=== PATIENT | male | born 1940 | race African-American/Black ===

== ENCOUNTER 2019-07-09 21:46 | Emergency (ER) | payer OTHER ==
[2019-07-09 22:03] VITALS: BP 157/67; PULSE 69; TEMP 98.7; BMI 26.6
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
== END 2019-07-09 23:50 | disposition home or self-care (01) ==
LOC: JER 21:46 → JERFT 21:46 → JER 23:50
DX: M79.18 Myalgia, other site (principal); M26.69 Other specified disorders of temporomandibular joint; M54.2 Cervicalgia; R51 Headache; V49.49XA Driver injured in collision with other motor vehicles in traffic accident, initial encounter; Y92.414 Local residential or business street as the place of occurrence of the external cause; Y93.89 Activity, other specified; Y99.8 Other external cause status; I10 Essential (primary) hypertension; E78.5 Hyperlipidemia, unspecified
CPT/HCPCS: 70450-TC; 70486-TC; 72125-TC; 99283-25

== ENCOUNTER 2019-10-04 15:43 | Emergency (ER) | payer OTHER ==
[2019-10-04 16:09] VITALS: BP 170/82; PULSE 82; TEMP 97.6; BMI 26.1
--- NOTE | 2019-10-04 16:09 | PDOC ---
Rapid Medical Evaluation Time Seen by Provider: 10/04/19 16:04 Medical Evaluation: Allergies Allergy/AdvReac Type Severity Reaction Status Date / Time No Known Drug Allergies Allergy Verified 07/09/19 22:01 10/04/19 16:04 CC: High blood pressure Pt is a 79 y/o male who presents to the ED with complaint of very high blood pressure while at the dentist earlier today. Was told to come to the ED since his PMD was closed. Pt states he has been having hazy vision since this morning. Brief exam: Non toxic appearing, calm, S1S2 Orders: labs, ekg To ED for further evaluation Discharge Disposition - Diagnosis High blood pressure - Referrals - Patient Instructions - Post Discharge Activity
[2019-10-04 16:41] LABS: BASO % 0.8 % (0-2.0); EOS % 5.1 % (0-4.5); HEMATOCRIT 43.8 % (35.4-49); HEMOGLOBIN 14.2 GM/dL (11.7-16.9); LYMPH % 17.5 % (8-40); MCH 27.7 pg (25.7-33.7); MCHC 32.4 g/dl (32.0-35.9); MEAN CELL VOLUME 85.3 fl (80-96); MEAN PLT VOLUME 8.4 fl (7.5-11.1); MONO % 10.4 % (3.8-10.2); NEUT % 66.2 % (42.8-82.8); PLATELET COUNT 205 K/MM3 (134-434); RBC 5.13 M/mm3 (4.00-5.60); WHITE BLOOD COUNT 8.8 K/mm3 (4.0-10.0)
[2019-10-04 17:13] LABS: ALBUMIN 3.9 g/dl (3.4-5.0); BILIRUBIN,TOTAL 0.4 mg/dL (0.2-1); BLOOD UREA NITROGEN 15.7 mg/dL (7-18); CALCIUM 9.4 mg/dL (8.5-10.1); CREATININE 0.9 mg/dL (0.55-1.3); MAGNESIUM 2.2 mg/dL (1.8-2.4); POTASSIUM 4.2 mmol/L (3.5-5.1); TOT PROT 7.5 g/dl (6.4-8.2)
--- NOTE | 2019-10-04 19:22 | PDOC ---
History of Present Illness - General Stated Complaint: SENT BY PCP/HYPERTENSION Time Seen by Provider: 10/04/19 16:04 History Source: Patient Exam Limitations: No Limitations - History of Present Illness Initial Comments: 10/04/19 19:23 HISTORY OF PRESENT ILLNESS: 79-year-old male past medical history of hypertension and hyperlipidemia presents emergency department for evaluation of elevated blood pressure. Patient states he was at his dentist office today when his dentist checked his blood pressure noted it was elevated. Patient denies any physical complaints including headache, dizziness, blurry vision, chest pain, shortness of breath, abdominal pain, nausea or vomiting. Patient denies any back pain or urinary difficulties. Patient states he stopped using his metoprolol as he had an unwanted side effect of impotence. Patient has not been in contact with his primary doctor to continue with alternative treatments for his blood pressure. Patient reports he has not taken his metoprolol in the past 2 weeks to avoid the undesired side effects. Patient states he has a full prescription of the medication at home. No recent travel or sick contacts. PAST MEDICAL HISTORY: See HPI SURGICAL HISTORY: Denies ALLERGIES: No known drug allergies REVIEW OF SYSTEMS General/Constitutional: See HPI HEENT: Denies change in vision. Denies ear pain or discharge. Denies sore throat. Cardiovascular: Denies chest pain or shortness of breath. Respiratory: Denies cough, wheezing, or hemoptysis. Gastrointestinal: Denies nausea, vomiting, diarrhea or constipation. Denies rectal bleeding. Genitourinary: Denies dysuria, frequency, or change in urination. Musculoskeletal: Denies joint or muscle swelling or pain. Denies neck or back pain. Skin and breasts: Denies rash or easy bruising. Neurologic: Denies headache, vertigo, loss of consciousness, or loss of sensation. Psychiatric: Denies depression or anxiety. Endocrine: Denies increased thirst. Denies abnormal weight change. Hematologic/Lymphatic: Denies anemia, easy bleeding, or history of blood clots. Allergic/Immunologic: Denies hives or skin allergy. Denies latex allergy. PHYSICAL EXAM General Appearance: Well-appearing, appropriately dressed. No apparent distress , no intoxication. HEENT: EOMI, PERRLA, normal ENT inspection, normal voice, TMs normal, pharynx normal. No conjunctival pallor. No photophobia, scleral icterus. Normal fundus-no cotton-wool spots present. Neck: Supple. Trachea midline. No tenderness, rigidity, carotid bruit, stridor , lymphadenopathy, or thyromegaly. Respiratory/Chest: Lungs CTAB. No shortness of breath, chest tenderness, respiratory distress, accessory muscle use. No crackles, rales, rhonchi, stridor , wheezing, dullness Cardiovascular: RRR. S1, S2. No JVD, murmur, bradycardia, tachycardia. Vascular Pulses: Dorsalis-Pedis (R): 2+, Dorsalis-Pedis (L): 2+ Gastrointestinal/Abdominal: Normal bowel sounds. Abdomen soft, non-distended. No tenderness or rebound tenderness. No organomegaly, pulsatile mass, guarding, hernia, hepatomegaly, splenomegaly. Lymphatic: No adenopathy, tenderness. Musculoskeletal/Extremities: Normal inspection. FROM of all extremities, normal capillary refill. Pelvis Stable. No CVA tenderness. No tenderness to extremities, pedal edema, swelling, erythema or deformity. Integumentary: Appropriate color, dry, warm. No cyanosis, erythema, jaundice or rash Neurologic: turn down worker II-XII intact. Fully oriented, alert. Appropriate mood/affect. Motor strength 5/5. No appreciable EOM palsy, facial droop or sensory deficit. Past History - Past Medical History Allergies/Adverse Reactions: Allergies Allergy/AdvReac Type Severity Reaction Status Date / Time No Known Drug Allergies Allergy Verified 07/09/19 22:01 Home Medications: Ambulatory Orders Atorvastatin Ca [Lipitor] 10 mg PO DAILY 06/22/14 Losartan/Hydrochlorothiazide [Losartan-Hctz 50-12.5 mg Tab] 1 each PO DAILY 07/20 Cyclobenzaprine HCl [Flexeril -] 10 mg PO HS PRN #7 tablet 07/09/19 Ibuprofen 600 mg PO QID PRN #20 tablet 07/09/19 Metoprolol Tartrate 50 mg PO DAILY 07/09/19 Anemia: No Asthma: Yes Cancer: Yes (prostate) Cardiac Disorders: No CVA: No COPD: Yes CHF: No Dementia: No Diabetes: No GI Disorders: Yes Disorders: No HTN: Yes Hypercholesterolemia: Yes Liver Disease: No Seizures: No Thyroid Disease: No - Surgical History Abdominal Surgery: Yes (HERNIA REPAIR) Appendectomy: No Cardiac Surgery: No Cholecystectomy: No Lung Surgery: No Neurologic Surgery: No Orthopedic Surgery: Yes (rt hand broken pinky) - Immunization History Td Vaccination: Yes Immunization Up to Date: Yes - Psycho Social/Smoking Cessation Hx Smoking Status: Yes Smoking History: Never smoked Years of Tobacco Use: 20 Have you smoked in the past 12 months: No Number of Cigarettes Smoked Daily: 0 If you are a former smoker, when did you quit?: 20 yrs ago Cigars Per Day: 0 Hx Alcohol Use: Yes (socially) Drug/Substance Use Hx: No Substance Use Type: Alcohol Hx Substance Use Treatment: No *Physical Exam - Vital Signs Last Vital Signs Temp Pulse Resp BP Pulse Ox 97.6 F 82 18 170/82 99 10/04/19 16:06 10/04/19 16:06 10/04/19 16:06 10/04/19 16:06 10/04/19 16:06 ED Treatment Course - LABORATORY CBC & Chemistry Diagram: 10/04/19 16:30 10/04/19 16:30 - ADDITIONAL ORDERS Additional order review: Laboratory Results 10/04/19 16:30 Sodium 140 Potassium 4.2 Chloride 107 Carbon Dioxide 26 Anion Gap 8 BUN 15.7 Creatinine 0.9 Est GFR (CKD-EPI)AfAm 94.48 Est GFR (CKD-EPI)NonAf 81.52 Random Glucose 100 Calcium 9.4 Magnesium 2.2 Total Bilirubin 0.4 AST 28 ALT 37 Alkaline Phosphatase 86 Total Protein 7.5 Albumin 3.9 10/04/19 16:30 RBC 5.13 MCV 85.3 MCHC 32.4 RDW 14.0 MPV 8.4 Neutrophils % 66.2 Lymphocytes % 17.5 Monocytes % 10.4 H Eosinophils % 5.1 H Basophils % 0.8 Medical Decision Making - Medical Decision Making 10/04/19 19:21 A/P: 79-year-old male with asymptomatic hypertension Patient blood pressure likely elevated due to the the fact that he stopped taking his metoprolol 2 weeks ago as he had impotence as a result of medication. Physical exam is within normal limits Patient is refusing additional dose of metoprolol here as he has the medication at home. Laboratory testing performed by E is unremarkable EKG sinus rhythm with rate of 70. Normal intervals present with a QTC of 444. Incomplete right bundle present. No significant change from EKG done 08/12/2015. Discharge home with instructions to continue take this medication and to discuss reasons for self deseeding his medication at his visit with Dr. Thomas on 10/09 which has been previously scheduled. Discharge home I discussed the physical exam findings, ancillary test results and final diagnoses with the patient. I answered all of the patient's questions. The patient was satisfied with the care received and felt comfortable with the discharge plan and treatment plan. The patient will call their primary care physician within 24 hours to arrange follow-up and will return to the Emergency Department with any new, persistent or worsening symptoms. Discharge - Discharge Information Problems reviewed: Yes Clinical Impression/Diagnosis: High blood pressure Qualifiers: Hypertension type: essential hypertension Qualified Code(s): I10 - Essential ( primary) hypertension Condition: Stable Disposition: HOME - Admission No - Follow up/Referral Referrals: Benson Thomas MD [Primary Care Provider] - - Patient Discharge Instructions Additional Instructions: It is important that you take your blood pressure medicine as prescribed. If you have unexpected side effects from taking the medication it is important to discuss these with your primary doctor so they can adjust your medication to relieve unwanted side effects. Your physical exam today was normal. Your EKG is unchanged from her previous visit. Make sure you follow-up with your primary doctor as scheduled on 10/09. Return to the emergency department for any new or worsening symptoms. Thank you very much for choosing us to provide your emergent healthcare needs. - Post Discharge Activity
--- NOTE | 2019-10-05 15:17 | EKG ---
Test Reason : Blood Pressure : / mmHG Vent. Rate : 070 BPM Atrial Rate : 070 BPM P-R Int : 170 ms QRS Dur : 092 ms QT Int : 412 ms P-R-T Axes : 050 -56 033 degrees QTc Int : 444 ms NORMAL SINUS RHYTHM POSSIBLE LEFT ATRIAL ENLARGEMENT INCOMPLETE RIGHT BUNDLE BRANCH BLOCK LEFT ANTERIOR FASCICULAR BLOCK ABNORMAL ECG WHEN COMPARED WITH ECG OF 12-AUG-2015 15:01, NONSPECIFIC T WAVE ABNORMALITY, IMPROVED IN LATERAL LEADS Confirmed by HENRY AGEE MD ([id number]) on 10/05/2019 3:17:46 PM Referred By: Confirmed By:HENRY AGEE MD
== END 2019-10-04 19:28 | disposition home or self-care (01) ==
LOC: JER 15:43
DX: I10 Essential (primary) hypertension (principal); E78.5 Hyperlipidemia, unspecified; E78.00 Pure hypercholesterolemia, unspecified; J44.9 Chronic obstructive pulmonary disease, unspecified; J45.998 Other asthma; Z85.46 Personal history of malignant neoplasm of prostate
CPT/HCPCS: 36415; 80053; 83735; 85025; 93005; 93010; 99282-25

== ENCOUNTER 2022-11-08 14:09 | Emergency (ER) | payer OTHER ==
[2022-11-08 14:26] VITALS: TEMP 98; BMI 27.3
[2022-11-08 15:39] LABS: BASO % 0.8 % (0-2.0); EOS % 7.3 % (0-4.5); HEMOGLOBIN 13.9 GM/dL (11.7-16.9); LYMPH % 24.2 % (8-40); MCH 26.5 pg (25.7-33.7); MCHC 32.4 g/dl (32.0-35.9); MEAN CELL VOLUME 81.8 fl (80-96); MEAN PLT VOLUME 8.5 fl (7.5-11.1); MONO % 11.4 % (3.8-10.2); NEUT % 56.3 % (42.8-82.8); PLATELET COUNT 225 10^3/uL (134-434); RBC 5.25 M/mm3 (4.00-5.60); RDW 14.1 % (11.9-15.9); URINE APPEARANCE CLEAR; URINE BILIRUBIN NEGATIVE (NEGATIVE); URINE COLOR DK YELLOW; URINE GLUCOSE (UA) NEGATIVE (NEGATIVE); URINE KETONE NEGATIVE (NEGATIVE); URINE LEUK ESTERASE NEGATIVE (NEGATIVE); URINE NITRITE NEGATIVE (NEGATIVE); URINE PROTEIN TRACE (NEGATIVE); URINE UROBILINOGEN 0.2 mg/dL (0.2-1.0); WHITE BLOOD COUNT 7.1 K/mm3 (4.0-10.0)
[2022-11-08 16:09] LABS: CALCIUM 8.6 mg/dL (8.5-10.1)
[2022-11-08 16:10] LABS: ALBUMIN 3.7 g/dl (3.4-5.0); BLOOD UREA NITROGEN 16.7 mg/dL (7-18)
[2022-11-08 16:12] LABS: CREATININE 0.7 mg/dL (0.55-1.3)
[2022-11-08 16:14] LABS: BILIRUBIN,TOTAL 0.4 mg/dL (0.2-1); TOT PROT 7.6 g/dl (6.4-8.2)
[2022-11-08 16:57] LABS: CALCIUM 8.8 mg/dL (8.5-10.1)
[2022-11-08 16:59] LABS: BLOOD UREA NITROGEN 17.4 mg/dL (7-18)
[2022-11-08 17:01] LABS: CREATININE 0.8 mg/dL (0.55-1.3)
[2022-11-08 17:54] VITALS: BP 143/71; PULSE 62; RESP 17
== END 2022-11-08 18:46 | disposition home or self-care (01) ==
LOC: JER 14:09
DX: I10 Essential (primary) hypertension (principal)
CPT/HCPCS: 0241U-QW; 36415; 70450-TC; 71046-TC-FY; 80048; 80053; 81003; 84484; 85025; 93005; 93010; 99285-25